=== PATIENT | male | born 1960 | race Caucasian/White ===

== ENCOUNTER 2018-04-04 11:44 | Emergency (ER) | payer OTHER ==
[~2018-04-04] VITALS: Ht 175.3 cm; Wt 81.8 kg
[2018-04-04 11:50] VITALS: TEMP 97.5
[2018-04-04] MEDS ORDERED: PRINIVIL40 MG PO (11:56)
[2018-04-04] MEDS ORDERED: BASAGLAR K100 UNIT/1 SQ (11:56)
[2018-04-04] MEDS ORDERED: LIPITOR 80MG80 MG PO (11:56)
[2018-04-04] MEDS ORDERED: NOVOLOG FLEX100 U/ML SQ (11:56)
[2018-04-04] MEDS ORDERED: NORVASC 5MG5 MG/TAB PO (11:57)
[2018-04-04] MEDS ORDERED: BYSTOLIC10 MG PO ×2 (11:57→11:58)
[2018-04-04] MEDS ORDERED: PLAVIX 75MG TAB75 MG PO (11:57)
[2018-04-04] MEDS ORDERED: PRILOTC PO (11:58)
[2018-04-04] MEDS ORDERED: ASPIRIN 81M81 MG/TA2 PO (11:58)
[2018-04-04 12:17] LABS: BASO # 0.1 (0.0-0.2); BASO % 0.8 % (0.0-2.0); EOS # 0.1 (0.0-0.7); EOS % 1.4 % (0-4.0); GRAN # 5.5 (1.4-6.5); GRAN % 60.7 % (42.2-75.2); HEMATOCRIT 40.2 % (42.0-52.0); HEMOGLOBIN 13.6 g/dl (13.5-18.0); LYMPH # 2.4 (1.2-3.4); LYMPH % 26.2 % (20.0-51.0); MEAN CELL VOLUME 89 fl (80.0-100.0); MEAN CORPUSCULAR HEMOGLOBIN 30 pg (27.0-31.0); MEAN CORPUSCULAR HGB CONC 34 g/dl (33.0-37.0); MEAN PLATELET VOLUME 8.6 fl (7.4-10.4); MONO % 10.7 % (1.7-9.3); PLATELET COUNT 232 K/mm3 (130-400); RED BLOOD COUNT 4.52 M/mm3 (4.20-5.60); REDCELL DISTRIBUTION WIDTH-CV 12.6 % (11.5-14.5)
[2018-04-04 12:28] LABS: ALANINE AMINOTRANSFERASE 33 U/L (21-72); ALBUMIN 4.2 gm/dL (3.5-5.0); ALKALINE PHOSPHATASE 69 U/L (50-136); ANION GAP 6 mmol/L (7-16); AST,SGOT 29 U/L (15-37); BLOOD UREA NITROGEN 17 mg/dL (9-20); CALCIUM 9.4 mg/dL (8.4-10.2); CARBON DIOXIDE 28 mmol/L (22-30); CHLORIDE 104 mmol/L (98-107); CREATININE, serum 0.91 mg/dL (0.66-1.25); GLUCOSE 101 mg/dL (74-106); LIPASE 71 U/L (23-300); POTASSIUM 3.8 mmol/L (3.4-5.0); SODIUM 138 mmol/L (137-145); TOTAL PROTEIN 7.6 gm/dL (6.4-8.2)
[2018-04-04 12:40] LABS: TROPONIN-I < 0.012 ng/mL (0.000-0.034)
[2018-04-04 16:20] VITALS: BP 169/95; PULSE 58
== END 2018-04-04 16:20 | disposition home or self-care (01) ==
LOC: COL.ER 11:44
PROVIDERS: Emergency Medicine
DX: I10 Essential (primary) hypertension (principal); R07.9 Chest pain, unspecified; E10.9 Type 1 diabetes mellitus without complications; I25.10 Atherosclerotic heart disease of native coronary artery without angina pectoris; E78.00 Pure hypercholesterolemia, unspecified; Z95.5 Presence of coronary angioplasty implant and graft; Z79.4 Long term (current) use of insulin; Z79.82 Long term (current) use of aspirin